=== PATIENT | female | born 1995 | race Asian ===

== ENCOUNTER 2017-10-16 04:10 | Emergency (ER) | payer SELFPAY ==
[2017-10-16 04:22] VITALS: TEMP 97.6; BMI 19.8
[2017-10-16] MEDS ORDERED: ACETAMINOPHEN 325 MG TABLET (FP) PO ONE (04:24)
[2017-10-16] MEDS ORDERED: ACETAMINOPHEN 325 MG TABLET (FP) ONE (04:31)
[2017-10-16 04:36] LABS: BASOPHIL 0.8 % (0-2.0); EOSINOPHIL 5.5 % (0-4.5); MCH 23.7 pg (25.7-33.7); MCHC 32.7 g/dl (32.0-36.0); MEAN CELL VOLUME 72.4 fl (80-96); MEAN PLT VOLUME 10.6 fl (7.5-11.1); NEUTROPHILS 57.8 % (42.8-82.8); PLATELET COUNT 195 K/MM3 (134-434); WHITE BLOOD COUNT 7.6 K/mm3 (4.0-10.0)
--- NOTE | 2017-10-16 05:06 | PDOC ---
History of Present Illness - General Chief Complaint: Chest Pain Stated Complaint: ANXIETY - History of Present Illness Initial Comments: Previously healthy 22 year old female with PMH of anxiety attacks presenting for chest pain / tightness. She describes the chest pain as a non-exertional, non-radiating left sided tightness 5/10-8/10 in quality. She gets similar chest pains during her previous anxiety attacks but they are much less severe in quality. Of ote she had had a sore throat since the day before presentation. Denies fevers, chills, nausea vomiting, diarrhea, urinary symptoms, or other sick symptoms. Denies recent travel history, sick contacts, smoking, or estrogen use. 10/16/17 05:07 Past History - Past Medical History Allergies/Adverse Reactions: Allergies Allergy/AdvReac Type Severity Reaction Status Date / Time No Known Allergies Allergy Verified 10/16/17 04:16 Home Medications: Ambulatory Orders NK [No Known Home Medication] 10/16/17 COPD: No - Immunization History Immunization Up to Date: Yes - Suicide/Smoking/Psychosocial Hx Smoking History: Never smoked Have you smoked in the past 12 months: No Information on smoking cessation initiated: No Hx Alcohol Use: No Drug/Substance Use Hx: No Substance Use Type: None Review of Systems - Review of Systems Constitutional: No: Chills, Diaphoresis, Fever HEENTM: No: Blurred Vision Respiratory: No: Cough, Orthopnea, Shortness of Breath Cardiac (ROS): Yes: Chest Pain, Chest Tightness. No: Irregular Heart Rate ABD/GI: No: Constipated, Diarrhea, Nausea : No: Burning, Dysuria, Discharge Musculoskeletal: No: Back Pain Integumentary: No: Bruising, Change in Color, Erythema Neurological: No: Headache, Numbness, Paresthesia Psychiatric: Yes: Anxiety, Stressors *Physical Exam - Vital Signs Last Vital Signs Temp Pulse Resp BP Pulse Ox 97.6 F 105 H 22 105/71 100 10/16/17 04:16 10/16/17 04:16 10/16/17 04:16 10/16/17 04:16 10/16/17 04:16 - Physical Exam General Appearance: Yes: Nourished, Appropriately Dressed. No: Apparent Distress HEENT: positive: EOMI, OLEKSANDR, Normal ENT Inspection, Normal Voice Neck: positive: Trachea midline, Normal Thyroid, Supple. negative: Tender, Rigid Respiratory/Chest: positive: Chest Tender (Left upper breast slightly TTP), Lungs Clear, Normal Breath Sounds. negative: Respiratory Distress, Accessory Muscle Use Cardiovascular: positive: Regular Rhythm, Regular Rate Gastrointestinal/Abdominal: positive: Normal Bowel Sounds, Flat, Soft. negative : Tender Musculoskeletal: positive: Normal Inspection Extremity: positive: Normal Capillary Refill, Normal Inspection, Normal Range of Motion Integumentary: positive: Normal Color, Dry, Warm Neurologic: positive: Fully Oriented, Alert, Normal Mood/Affect ED Treatment Course - LABORATORY CBC & Chemistry Diagram: 10/16/17 04:27 10/16/17 04:27 - ADDITIONAL ORDERS Additional order review: Laboratory Results 10/16/17 04:27 Serum , Qual Negative 10/16/17 04:27 RBC 4.50 MCV 72.4 L MCHC 32.7 RDW 16.0 H MPV 10.6 Neutrophils % 57.8 Lymphocytes % 29.3 Monocytes % 6.6 Eosinophils % 5.5 H Basophils % 0.8 - RADIOLOGY Radiology Studies Ordered: Category Date Time Status CXRPORT [CHEST X-RAY PORTABLE*] [RAD] Stat Radiology 10/16/17 04:24 Ordered - Medications Given in the ED: ED Medications Discontinued Medications Generic Name Dose Route Start Last Admin Trade Name Freq PRN Reason Stop Dose Admin Acetaminophen 650 mg 10/16/17 04:24 10/16/17 04:35 Tylenol - PO 10/16/17 04:25 650 mg ONCE ONE Administration Medical Decision Making - Medical Decision Making 32 year old female with history of anxiety attacks presenting with chest tightness of short duration intermittently. Slightly pleuritic in quality but no risk factors for PE. Will get cardiac enzymes, basic labs, and EKG. Hydrate with 1 L NS and give tylenol 650. 10/16/17 05:10 Labs WNL and preg test negative. EKG NSR. Gave psych referral. 10/16/17 06:06 *DC/Admit/Observation/Transfer Diagnosis at time of Disposition: Atypical chest pain - Discharge Dispostion Disposition: HOME Condition at time of disposition: Improved Admit: No - Referrals Referrals: Arti Arias MD [Staff Physician] - - Patient Instructions Printed Discharge Instructions: DI for Atypical Chest Pain Additional Instructions: We looked at your heart enzymes and ekg and did not find any problems with your heart. We believe that you had another anxiety attack. Please follow up with Dr. Arias of psychiatry for possible medical options for your anxiety or other methods of control. - Post Discharge Activity
[2017-10-16 05:21] LABS: ALBUMIN 3.6 g/dl (3.4-5.0); ANION GAP 9 (8-16); BILIRUBIN,TOTAL 0.1 mg/dL (0.2-1.0); CALCIUM 8.7 mg/dL (8.5-10.1); CO2 24 mmol/L (21-32); CREATININE 0.7 mg/dL (0.55-1.02); GLUCOSE,RANDOM 103 mg/dL (74-106); SGOT/AST 8 U/L (15-37); SGPT/ALT 12 U/L (12-78)
[2017-10-16 05:23] LABS: ALK PHOS 52 U/L (45-117); TROPONIN I < 0.02 ng/ml (0.00-0.05)
--- NOTE | 2017-10-16 06:08 | PDOC ---
Attending Attestation - Resident Resident Name: Cindy Rahman - ED Attending Attestation I have performed the following: I have examined & evaluated the patient, The case was reviewed & discussed with the resident, I agree w/resident's findings & plan - HPI HPI: 10/16/17 06:07 Pt comes with atypical CP. She has hx of anxiety attacks. - Physicial Exam PE: 10/16/17 06:07 Normal exam; agree with resident - Medical Decision Making 10/16/17 06:08 Labs and ekg and exam normal; home with psych followup.
[2017-10-16 06:42] VITALS: BP 110/76; PULSE 89
--- NOTE | 2017-10-18 23:03 | EKG ---
Test Reason : Blood Pressure : / mmHG Vent. Rate : 098 BPM Atrial Rate : 098 BPM P-R Int : 130 ms QRS Dur : 072 ms QT Int : 340 ms P-R-T Axes : 046 034 044 degrees QTc Int : 434 ms NORMAL SINUS RHYTHM NORMAL ECG NO PREVIOUS ECGS AVAILABLE Confirmed by SARA MISHRA MD ([id number]) on 10/18/2017 11:02:38 PM Referred By: Confirmed By:SARA MISHRA MD
== END 2017-10-16 06:28 | disposition home or self-care (01) ==
LOC: JER 04:10
DX: R07.89 Other chest pain (principal); F41.0 Panic disorder [episodic paroxysmal anxiety]
CPT/HCPCS: 36415; 71010-TC; 80053; 84484; 84703; 85025; 93005; 93010; 99283-25